=== PATIENT | male | born 1965 | race Caucasian/White ===

== ENCOUNTER 2017-06-21 12:24 | Outpatient (CLI) | payer BC ==
--- OUTSIDE RECORDS SUMMARY | 2017-06-21 13:25 | XMS | Clinical Summary ---
:1965 Author Organization [facility] Address [address] [place] [id number] Phone Care Team Providers Name Role Phone , Primary Care Provider Unavailable Allergies No Known Allergies Current Medications Prescription Sig. Disp. Refills Start Date End Date Status omega-3 acid ethyl esters Take 2 g by mouth Active (LOVAZA) 1 gram capsule 2 (two) times daily. Active Problems Problem Noted Date Elevated blood pressure 04/26/2013 Overview: Episodes, mildly symptomatic Impaired glucose tolerance 07/21/2012 Hypotestosteronism 07/21/2012 Hyperlipidemia Overview: Triglycerides > 700 at baseline Metabolic syndrome Morbid obesity Resolved Problems Problem Noted Date Resolved Date Mixed hyperlipidemia 02/04/2012 07/19/2012 Overview: Converted from [facility] Impaired fasting glucose 02/04/2012 07/19/2012 Overview: Converted from [facility] Family History Medical History Relation Name Comments Asthma Daughter Heart attack Father Stroke Father Alcohol abuse Mother Heart attack Mother Relation Name Status Comments Brother x2 Alive Daughter Alive Father Alive Mother Sister x1 Alive Social History Tobacco Use Types Packs/Day Years Used Date Never Smoker Alcohol Use Drinks/Week oz/Week Comments Yes Rarely Sex Assigned at Date Recorded Not on file Last Filed Vital Signs Vital Sign Reading Time Taken Blood Pressure 140/88 04/26/2013 1:05 PM CDT Pulse 84 04/26/2013 1:05 PM CDT Temperature 36.8 C (98.3 F) 02/04/2012 9:00 AM CDT Respiratory Rate 20 04/26/2013 1:05 PM CDT Oxygen Saturation - - Inhaled Oxygen Concentration - - Weight 136.5 kg (301 lb) 04/26/2013 1:05 PM CDT Height 180.3 cm (5' 11") 04/26/2013 1:05 PM CDT Body Mass Index 41.98 04/26/2013 1:05 PM CDT Plan of Treatment Health Maintenance Due Date Last Done Comments INFLUENZA VACCINE 05/23/2017 Results Not on filefrom Last 3 Months
--- NOTE | 2017-06-21 19:34 | ULT ---
TESTICULAR ULTRASOUND: Date: 06-21-17 History: Left hydrocele. Comparison: None available. FINDINGS: Right testicle demonstrates a normal sonographic appearance without evidence of a testicular mass. T he right testicle measures 4.3 x 2.7 x 2.1 cm. The left testicle measures 3.3 x 2.6 x 2.3 cm. There in anechoic cystic structure seen within the [place] dy of the mid testicle measuring 0.6 cm, most consistent with an intratesticular cyst. Left testicle has a normal sonographic appearance. There is a very large left sided hydrocele. Minimal amount of fluid is seen adjacent to the right te sticle which is probably physiologic in origin. Doppler evaluation of each testicle with spectral analysis and color flow evaluation demonstrates ar terial flow in each testicle. IMPRESSION: 1. Very large left sided hydrocele. 2. Small left intratesticular cyst. 3. Small right epididymal cyst. 4. Left epididymis is not well visualized. POS: [facility]
== END 2017-06-21 12:25 | disposition home or self-care (01) ==
LOC: SCSULT 12:24
PROVIDERS: ATTEND Urology
DX: N43.3 Hydrocele, unspecified (principal); N50.3 Cyst of epididymis
CPT/HCPCS: 76870; 93976